=== PATIENT | female | born 1990 | race Caucasian/White ===

== ENCOUNTER 2018-04-30 13:33 | Emergency (ER) | payer MEDICAID, OTHER ==
[~2018-04-30] VITALS: Ht 165.1 cm; Wt 56.6 kg
[2018-04-30 13:35] VITALS: Ht 165.1 cm; Wt 56.6 kg
[2018-04-30] MEDS ORDERED: ACETAMINOPHEN 325 MG TAB PO STA (13:49)
--- NOTE | 2018-04-30 14:01 | ERD ---
ER Documentation Chief Complaint Chief Complaint 4wks seen clinic r/o ectopic , LMP 04/02/18 HPI This patient is a 27-year-old female with no significant past medical history, reportedly 4 weeks , last menstrual cycle 04/02/2018, presenting today with complaints of pelvic pain localized to the right side which is rated 8/10 in severity and constant. Pain began 3 days ago. Patient denies any vaginal bleeding, fevers, chills, vaginal discharge, dysuria, or other symptoms at this time. 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 ROS All systems reviewed and are negative except as per history of present illness. Medications Home Meds Active Scripts Acetaminophen* (Tylenol*) 325 Mg Tablet, 2 TAB PO Q6 PRN for PAIN AND OR ELEV ATED TEMP, #20 TAB Prov:MISA TOTH PA-C 04/30/18 Cephalexin* (Keflex*) 500 Mg Capsule, 500 MG PO QID for 5 Days, CAP Prov:MISA TOTH PA-C 04/30/18 Allergies Allergies: Coded Allergies: No Known Allergy (Unverified , 04/30/18) PMhx/Soc Medical and Surgical Hx: pt denies Medical Hx FmHx Family History: No diabetes Physical Exam Vitals Vital Signs Date Temp Pulse Resp B/P (MAP) Pulse Ox O2 O2 Flow FiO2 Time Delivery Rate 04/30/18 98.4 77 16 125/76 99 Room Air 15:15 (92) 04/30/18 99.5 126 18 152/67 99 13:35 (95) Physical Exam Const: No acute distress Head: Atraumatic Eyes: Normal Conjunctiva ENT: Normal External Ears, Nose and Mouth. Neck: Full range of motion. No meningismus. Resp: Clear to auscultation bilaterally Cardio: Regular rate and rhythm, no murmurs Abd: Soft, non tender, non distended. Normal bowel sounds. Mild subjective tenderness to palpation of the right pelvic region. There is no rebound tenderness or guarding. No McBurney's point tenderness. Skin: No petechiae or rashes Ext: No cyanosis, or edema Neur: Awake and alert Psych: Normal Mood and Affect Result Diagram: 04/30/18 1358 Results 24 hrs Laboratory Tests Test 04/30/18 13:58 White Blood Count 8.6 10^3/ul Red Blood Count 4.40 10^6/ul Hemoglobin 12.6 g/dl Hematocrit 38.8 % Mean Corpuscular Volume 88.2 fl Mean Corpuscular Hemoglobin 28.6 pg Mean Corpuscular Hemoglobin Concent 32.5 g/dl Red Cell Distribution Width 12.2 % Platelet Count 226 10^3/UL Mean Platelet Volume 9.9 fl Immature Granulocytes % 0.200 % Neutrophils % 75.2 % Lymphocytes % 17.4 % Monocytes % 6.4 % Eosinophils % 0.2 % Basophils % 0.6 % Nucleated Red Blood Cells % 0.0 /100WBC Immature Granulocytes # 0.020 10^3/ul Neutrophils # 6.5 10^3/ul Lymphocytes # 1.5 10^3/ul Monocytes # 0.6 10^3/ul Eosinophils # 0.0 10^3/ul Basophils # 0.1 10^3/ul Nucleated Red Blood Cells # 0.0 10^3/ul Urine Color YELLOW Urine Clarity SLIGHTLY CLOUDY Urine pH 6.0 Urine Specific [place] 1.019 Urine Ketones NEGATIVE mg/dL Urine Nitrite NEGATIVE mg/dL Urine Bilirubin NEGATIVE mg/dL Urine Urobilinogen NEGATIVE mg/dL Urine Leukocyte Esterase 2+ Bhupinder/ul Urine Microscopic RBC 1 /HPF Urine Microscopic WBC 4 /HPF Urine Squamous Epithelial Cells FEW /HPF Urine Bacteria FEW /HPF Urine Mucus FEW /HPF Urine Hemoglobin NEGATIVE mg/dL Urine Glucose NEGATIVE mg/dL Urine Total Protein NEGATIVE mg/dl Beta HCG, Quantitative 37.4 mIU/ml Current Medications Medications Dose Sig/Yuliet Start Time Status Last (Trade) Ordered Route PRN Stop Time Admin Dose Reason Admin 650 mg ONCE STAT 04/30/18 DC 04/30/18 Acetaminophen PO 13:49 04/30/18 13:59 (Tylenol 13:52 Tab) Sodium 1,000 ml @ Q1H ONCE 04/30/18 DC 04/30/18 Chloride 1,000 mls/hr IV 14:30 04/30/18 14:08 15:29 [place] [address] Radiology Main Line: [phone] DIAGNOSTIC IMAGING REPORT Patient: YONI BRUNO : 1990 Age: 27 Sex: F MR #: [id number] DOS: 04/30/18 1349 Ordering MD: MISA TOTH PA-C Location: [facility] Room/Bed: PROCEDURE: US OB. CLINICAL INDICATION: Vaginal bleeding in . TECHNIQUE: Transabdominal and endovaginal imaging of the uterus is available for review COMPARISON: None available FINDINGS: No intrauterine is identified. The endometrial stripe is heterogeneous and measures 13 mm in thickness. The uterus is otherwise unremarkable. The right ovary measures 4.2 x 2.9 x 2.6 cm and the left ovary measures 2.6 x 1.9 x 1.7 cm. No adnexal mass is identified. No free fluid is noted within the pelvis. IMPRESSION: No intrauterine identified. There are no adnexal masses. Correlation with serial beta HCGs and repeat pelvic ultrasound as clinically indicated, is recommended, as ectopic is not excluded on this examination. RPTAT: HH .Aurora Weinberg MD, MD Date Time Electronically viewed and signed by .Aurora Weinberg MD, MD on 04/30/2018 14:38 .G/ CC: MISA TOTH PA-C [phone] Procedures/MDM Patient is a 27-year-old female presenting to the emergency department complaining of right pelvic pain. She is reportedly 4 weeks . Beta hCG was 37. Obstetrics ultrasound showed no intrauterine gestation. Patient was administered Tylenol in the department with good response. She was improved on reevaluation. Differential diagnosis included missed , early viable intrauterine gestation, ectopic , ovarian torsion, and others. Patient's pain is likely secondary to urinary tract infection. Low suspicion for emergent pathology. Patient was advised to return in 3-5 days for repeat beta- hCG and ultrasound. Patient agreed with the diagnosis, plan, need for follow- up, return precautions. No evidence of life-threatening pathology at time of discharge. Pt/family in agreement with discharge plan/diagnosis. Pt/family advised to return immediately with any new or worsening symptoms. Follow-up with primary care physician within the next 1-2 days. Disclaimer: Inadvertent spelling and grammatical errors are likely due to EHR/dictation software use and do not reflect on the overall quality of patient care. Also, please note that the electronic time recorded on this note does not necessarily reflect the actual time of the patient encounter. Departure Diagnosis: Primary Impression: Pelvic pain complicating Trimester: first trimester Qualified Codes: O26.891 - Other specified related conditions, first trimester; R10.2 - Pelvic and perineal pain Condition: Fair MISA TOTH PA-C Apr 30, 2018 14:01
[2018-04-30] MEDS ORDERED: SOD CHLORIDE 0.9% 1,000 ML IV ONE (14:30)
[2018-04-30] MEDS ORDERED: ACET325T33 PO (15:09)
[2018-04-30] MEDS ORDERED: CEPH-443 PO (15:09)
[2018-04-30 15:15] VITALS: BP 125/76; PULSE 77; RESP 16
== END 2018-04-30 15:15 | disposition home or self-care (01) ==
LOC: FTE 13:33
DX: O26.891 Other specified pregnancy related conditions, first trimester (principal); R10.2 Pelvic and perineal pain; Z3A.01 Less than 8 weeks gestation of pregnancy
CPT/HCPCS: 36415; 76801; 76817; 81001; 84702; 85025; J7030; Z7502; Z7610

== ENCOUNTER 2018-05-12 06:38 | Emergency (ER) | payer MEDICAID ==
[~2018-05-12] VITALS: Ht 160 cm; Wt 55.7 kg
[~2018-05-12 06:38] MED LIST: ACET325T33 PO; CEPH-443 PO
[2018-05-12 06:40] VITALS: Ht 160 cm; Wt 55.7 kg
[2018-05-12] MEDS ORDERED: ACET325T33 PO (09:50)
[2018-05-12] MEDS ORDERED: NITR-58 PO (09:50)
--- NOTE | 2018-05-12 10:38 | ERD ---
ER Documentation Chief Complaint Chief Complaint for re check RLQ PAIN; Painful urination started last night HPI 27-year-old female presenting with dysuria and a recheck of current . Patient is LNMP was April 02. A0. Being seen at [facility]. Patient has had multiple visits to the ER with no IUP visualized likely due to early however ectopic has never been excluded patient has had some lower pelvic pain. Patient states that her pain is improving however she continues to have dysuria. No back pain. No fevers. Denies medical problems. NKDA. Surgical history denies. Social history denies ROS All systems reviewed and are negative except as per history of present illness. Medications Home Meds Active Scripts Acetaminophen* (Tylenol*) 325 Mg Tablet, 1 TAB PO Q8 PRN for PAIN AND OR ELEVATED TEMP, #20 TAB Prov:BRIT CAAL PA-C 05/12/18 Nitrofurantoin Monohyd Macrocr* (Macrobid*) 100 Mg Capsr, 100 MG PO BID for 14 Days, CAP Prov:BRIT CAAL PA-C 05/12/18 Acetaminophen* (Tylenol*) 325 Mg Tablet, 1 TAB PO Q6 PRN for PAIN AND OR ELEVATED TEMP, #20 TAB Prov:BRIT CAAL PA-C 05/05/18 Acetaminophen* (Tylenol*) 325 Mg Tablet, 2 TAB PO Q6 PRN for PAIN AND OR ELEVATED TEMP, #20 TAB Prov:MISA TOTH PA-C 04/30/18 Cephalexin* (Keflex*) 500 Mg Capsule, 500 MG PO QID for 5 Days, CAP Prov:MISA TOTH PA-C 04/30/18 Allergies Allergies: Coded Allergies: No Known Allergy (Unverified , 04/30/18) PMhx/Soc Medical and Surgical Hx: pt denies Medical Hx, pt denies Surgical Hx Hx Alcohol Use: No Hx Substance Use: No Hx Tobacco Use: No Smoking Status: Never smoker FmHx Family History: No diabetes, No coronary disease, No other Physical Exam Vitals Vital Signs Date Temp Pulse Resp B/P (MAP) Pulse Ox O2 O2 Flow FiO2 Time Delivery Rate 05/12/18 97.6 87 19 142/71 100 06:40 (94) Physical Exam GENERAL: The patient is well-appearing, well-nourished, in no acute distress CHEST: Clear to auscultation bilaterally. There are no rales, wheezes or rho nchi. HEART: Regular rate and rhythm. No murmurs, clicks, rubs or gallops. ABDOMEN:Soft, nontender and nondistended. Good bowel sounds. No rebound or guarding. No gross peritonitis. No gross organomegaly or masses. BACK: No midline or flank tenderness. Result Diagram: 05/12/18 0714 Results 24 hrs Laboratory Tests Test 05/12/18 07:13 05/12/18 07:14 Beta HCG, Quantitative 6516.8 mIU/ml White Blood Count 5.8 10^3/ul Red Blood Count 4.56 10^6/ul Hemoglobin 13.1 g/dl Hematocrit 40.2 % Mean Corpuscular Volume 88.2 fl Mean Corpuscular Hemoglobin 28.7 pg Mean Corpuscular Hemoglobin Concent 32.6 g/dl Red Cell Distribution Width 12.0 % Platelet Count 257 10^3/UL Mean Platelet Volume 9.7 fl Immature Granulocytes % 0.300 % Neutrophils % 67.9 % Lymphocytes % 24.4 % Monocytes % 5.9 % Eosinophils % 1.0 % Basophils % 0.5 % Nucleated Red Blood Cells % 0.0 /100WBC Immature Granulocytes # 0.020 10^3/ul Neutrophils # 3.9 10^3/ul Lymphocytes # 1.4 10^3/ul Monocytes # 0.3 10^3/ul Eosinophils # 0.1 10^3/ul Basophils # 0.0 10^3/ul Nucleated Red Blood Cells # 0.0 10^3/ul Urine Color YELLOW Urine Clarity SLIGHTLY CLOUDY Urine pH 5.0 Urine Specific [place] 1.020 Urine Ketones NEGATIVE mg/dL Urine Nitrite NEGATIVE mg/dL Urine Bilirubin NEGATIVE mg/dL Urine Urobilinogen NEGATIVE mg/dL Urine Leukocyte Esterase TRACE Bhupinder/ul Urine Microscopic RBC 3 /HPF Urine Microscopic WBC 3 /HPF Urine Squamous Epithelial Cells FEW /HPF Urine Bacteria FEW /HPF Urine Mucus MODERATE /HPF Urine Hemoglobin NEGATIVE mg/dL Urine Glucose NEGATIVE mg/dL Urine Total Protein NEGATIVE mg/dl Procedures/MDM DIAGNOSTIC IMAGING REPORT Patient: YONI BRUNO : 1990 Age: 27 Sex: F MR #: [id number] DOS: 05/12/18 0658 Ordering MD: YULI CAAL PA-C Location: [facility]TE Room/Bed: PROCEDURE: US Obstetric less than 14 weeks. CLINICAL INDICATION: , vaginal bleeding TECHNIQUE: Transabdominal and transvaginal imaging of the pelvis was performed. Images are reviewed on a high-resolution PACS workstation. COMPARISON: US PELVIS 05/08/2018 FINDINGS: Early intrauterine gestational sac is identified. Yolk sac is present. No pole or cardiac activity is seen at this time. Mean sac diameter is 0.81 cm, corresponding to 5 weeks 3 days gestational age. Right ovary demonstrates a 2.4 cm corpus luteum cyst. Left ovary is unremarkable. No ovarian torsion or solid adnexal mass. Nonspecific small amount of pelvic free fluid. IMPRESSION: 1. Early intrauterine gestational sac, as above. Viability cannot be confirmed at this time. Continued sonographic follow-up is recommended. 2. Right ovary demonstrates a 2.4 cm corpus luteum cyst. Nonspecific small amount of pelvic free fluid is present, possibly physiologic. 3. No gross sonographic evidence of ectopic gestation is seen at this time. MDM: 27-year-old female presenting with dysuria and IUP seen on ultrasound. Patient is recommended at this point to move forward with OPTICAL DESIGNER and I have low suspicion for ectopic. I explained that we are unable to confidently confirm that this is a viable given its likely too early patient is recommended follow-up with OPTICAL DESIGNER. Patient's urine is sent for culture given she has continued dysuria however urinalysis appears noninfected. Patient is discharged stricter precautions and supportive medications. Patient is told symptoms change or worsen to return immediately to the ER. All questions answered at discharge Departure Diagnosis: Primary Impression: Dysuria Additional Impression: Pelvic pain Condition: Stable Patient Instructions: Dysuria Referrals: [facility] YOU HAVE RECEIVED A MEDICAL SCREENING EXAM AND THE RESULTS INDICATE THAT YOU DO NOT HAVE A CONDITION THAT REQUIRES URGENT TREATMENT IN THE EMERGENCY DEPARTMENT. FURTHER EVALUATION AND TREATMENT OF YOUR CONDITION CAN WAIT UNTIL YOU ARE SEEN IN YOUR DOCTORS OFFICE WITHIN THE NEXT 1-2 DAYS. IT IS YOUR RESPONSIBILITY TO MAKE AN APPOINTMENT FOR FOLOW-UP CARE. IF YOU HAVE A PRIMARY DOCTOR --you should call your primary doctor and schedule an appointment IF YOU DO NOT HAVE A PRIMARY DOCTOR YOU CAN CALL OUR PHYSICIAN REFERRAL HOTLINE AT IF YOU CAN NOT AFFORD TO SEE A PHYSICIAN YOU CAN CHOSE FROM THE FOLLOWING [facility] [address] [facility]. [facility] [address] [facility] [facility] [address] [facility] [address] [facility] [facility] [address] [facility] [address] [employer] [place] [address] [address] [place] [address]USLEME MICHEAL [address] [place] [address] [address] [address] [place] [address] [address] [facility] [address] [facility] [address] [facility] [address] [place] [address] [facility] [address] [place] [address] [address] [place] [id number] [address] [facility] [address] [address] MENSAH AXEL [address] [facility]. [address], [place] [address] [address], [facility] [address] [place] [address] Additional Instructions: FOLLOW UP WITH YOUR PRIMARY CARE PHYSICIAN TOMORROW.Return to this facility if you are not improving as expected. BRIT CAAL PA-C May 12, 2018 10:38
== END 2018-05-12 10:02 | disposition home or self-care (01) ==
LOC: FTE 06:38
DX: O99.89 Other specified diseases and conditions complicating pregnancy, childbirth and the puerperium (principal); R10.2 Pelvic and perineal pain; R30.0 Dysuria; Z3A.01 Less than 8 weeks gestation of pregnancy
CPT/HCPCS: 36415; 76801; 76817; 81001; 84702; 85025; 87086

== ENCOUNTER 2018-05-27 07:42 | Emergency (ER) | payer MEDICAID ==
[~2018-05-27] VITALS: Ht 160 cm; Wt 56.0 kg
[~2018-05-27 07:42] MED LIST changes: +NITR-58 PO
[2018-05-27 07:46] VITALS: BP 131/75; PULSE 80; RESP 18; Ht 160 cm; Wt 56.0 kg
--- NOTE | 2018-05-27 08:54 | ERD ---
ER Documentation Chief Complaint Chief Complaint pt is bib family with c/o vag bleeding starting this am, pain, 7 wks preg HPI Very pleasant 27-year-old female approximate 7 weeks with confirmed IUP on ultrasound earlier this week. Patient presents with spotting over the past 24 hours. Mild abdominal cramping on the right side. No fevers or chills nausea or vomiting. She is known to be Rh-. She denies any significant bleeding at this time. ROS All systems reviewed and are negative except as per history of present illness. Medications Home Meds Active Scripts Acetaminophen* (Tylenol*) 325 Mg Tablet, 1 TAB PO Q8 PRN for PAIN AND OR ELEVATED TEMP, #20 TAB Prov:BRIT CAAL PA-C 05/12/18 Nitrofurantoin Monohyd Macrocr* (Macrobid*) 100 Mg Capsr, 100 MG PO BID for 14 Days, CAP Prov:BRIT CAAL PA-C 05/12/18 Acetaminophen* (Tylenol*) 325 Mg Tablet, 1 TAB PO Q6 PRN for PAIN AND OR ELEVATED TEMP, #20 TAB Prov:BRIT CAAL PA-C 05/05/18 Acetaminophen* (Tylenol*) 325 Mg Tablet, 2 TAB PO Q6 PRN for PAIN AND OR ELEVATED TEMP, #20 TAB Prov:MISA TOTH PA-C 04/30/18 Cephalexin* (Keflex*) 500 Mg Capsule, 500 MG PO QID for 5 Days, CAP Prov:MISA TOTH PA-C 04/30/18 Allergies Allergies: Coded Allergies: No Known Allergy (Unverified , 04/30/18) PMhx/Soc History of Surgery: No Anesthesia Reaction: No Hx Neurological Disorder: No Hx Respiratory Disorders: No Hx Cardiac Disorders: No Hx Psychiatric Problems: No Hx Miscellaneous Medical Probl: No Hx Alcohol Use: No Hx Substance Use: No Hx Tobacco Use: No Smoking Status: Never smoker FmHx Family History: No diabetes Physical Exam Vitals Vital Signs Date Temp Pulse Resp B/P (MAP) Pulse Ox O2 O2 Flow FiO2 Time Delivery Rate 05/27/18 99.3 80 18 131/75 100 07:46 (93) Physical Exam General: Well developed, well nourished, no acute distress Head: Normocephalic, atraumatic. Eyes: EOM intact ENT: Moist mucous membranes Neck: Full ROM Respiratory: No respiratory distress Cardiovascular: Well perfused distally Abdominal: Nondistended soft and nontender without rebound or guarding, no localization of McBurney's point : Deferred MSK: No edema, no unilateral swelling, 5/5 strength Neurologic: Alert and oriented, moving all extremities, normal speech, steady gait Skin: No rash Psych: Normal mood Result Diagram: 05/27/18 0815 Results 24 hrs Laboratory Tests Test 05/27/18 08:15 White Blood Count 6.8 10^3/ul Red Blood Count 4.33 10^6/ul Hemoglobin 12.5 g/dl Hematocrit 37.8 % Mean Corpuscular Volume 87.3 fl Mean Corpuscular Hemoglobin 28.9 pg Mean Corpuscular Hemoglobin Concent 33.1 g/dl Red Cell Distribution Width 12.0 % Platelet Count 229 10^3/UL Mean Platelet Volume 9.7 fl Immature Granulocytes % 0.300 % Neutrophils % 76.2 % Lymphocytes % 15.8 % Monocytes % 5.9 % Eosinophils % 1.2 % Basophils % 0.6 % Nucleated Red Blood Cells % 0.0 /100WBC Immature Granulocytes # 0.020 10^3/ul Neutrophils # 5.2 10^3/ul Lymphocytes # 1.1 10^3/ul Monocytes # 0.4 10^3/ul Eosinophils # 0.1 10^3/ul Basophils # 0.0 10^3/ul Nucleated Red Blood Cells # 0.0 10^3/ul Urine Color YELLOW Urine Clarity SLIGHTLY CLOUDY Urine pH 5.0 Urine Specific [place] 1.024 Urine Ketones NEGATIVE mg/dL Urine Nitrite NEGATIVE mg/dL Urine Bilirubin NEGATIVE mg/dL Urine Urobilinogen NEGATIVE mg/dL Urine Leukocyte Esterase NEGATIVE Bhupinder/ul Urine Microscopic RBC 5 /HPF Urine Microscopic WBC 2 /HPF Urine Squamous Epithelial Cells FEW /HPF Urine Bacteria FEW /HPF Urine Mucus FEW /HPF Urine Hemoglobin NEGATIVE mg/dL Urine Glucose NEGATIVE mg/dL Urine Total Protein NEGATIVE mg/dl Procedures/MDM EKG, MONITORS, & DIAGNOSTIC IMAGING: Pelvic ultrasound: IMPRESSION: Single live intrauterine with an estimated gestational age of 7 weeks and 5 days, based on ultrasound measurements. WILLIE based on ultrasound measurements is 01/08/19. Right ovarian corpus luteum cyst. LAB INTERPRETATION: Serum hCG: Pending Rh status: Negative, RhoGam will be administered MEDICAL DECISION MAKING: The patient's symptoms are most consistent with acute threatened miscarriage. She exhibits no signs or symptoms concerning for acute ectopic however this needs to be evaluated here in the emergency room and be ruled out. In addition I doubt other acute intra-abdominal process such as ovarian cyst, ovarian torsion, acute appendicitis, colitis, kidney stone, acute pancreatitis or acute cholecystitis. The patient will require further evaluation, laboratory testing and diagnostic imaging to evaluate and rule out acute ectopic . Patient will also require prompt outpatient TEMPORARY ADMINISTRATIVE ASSISTANT follow-up. We discussed this at the bedside. Ectopic seems extremely unlikely given confirmed IUP on ultrasound earlier this week. However, repeat ultrasound is necessary. We had an in-depth conversation regarding the diagnosis of threatened miscarriage, the prevalence of this process, the expected management as well as return precautions. ER COURSE: * RhoGam provided * IUP confirmed. Patient can be safely discharged with outpatient TEMPORARY ADMINISTRATIVE ASSISTANT follow-up. Return precautions were discussed and understood. I kept the patient and/or family informed of laboratory and diagnostic imaging results throughout the emergency room course. DISPOSITION PLAN: We discussed follow up with the patient's primary care doctor within 24 to 48 hours as needed. We also discussed return to the emergency room for worsening symptoms or worsening condition. Close outpatient TEMPORARY ADMINISTRATIVE ASSISTANT follow-up for repeat hCG value in 2-3 days and ultrasound as needed. Discharge medications: None required Departure Diagnosis: Primary Impression: Vaginal bleeding in patient at less than 20 weeks gestation Additional Impression: Threatened miscarriage Condition: Stable CAIT KINNEY MD May 27, 2018 08:53
== END 2018-05-27 10:40 | disposition home or self-care (01) ==
LOC: FTE 07:42
DX: O20.0 Threatened abortion (principal); Z3A.01 Less than 8 weeks gestation of pregnancy
CPT/HCPCS: 36415; 76801; 81001; 81003; 84702; 85025; 86900; 86901; J2790; Z7502